=== PATIENT | female | born 1990 | race Native Hawaiian/Other Pacific Islander ===

== ENCOUNTER 2016-06-26 20:38 | Emergency (ER) | payer OTHER ==
[2016-06-26 20:43] VITALS: BP 110/62; PULSE 80; RESP 16; TEMP 98; O2SAT 100
--- NOTE | 2016-06-26 20:49 | ED PDOC ---
Lower Extremity Pain/Injury Time Seen by Provider: 06/26/16 20:46 Chief Complaint (Nursing): Lower Extremity Problem/Injury Chief Complaint (Provider): Right 5th Toe Pain/Injury History Per: Patient, Family () History/Exam Limitations: no limitations Onset/Duration Of Symptoms: Hrs (just prior to arrival) Current Symptoms Are (Timing): Still Present Severity: Moderate Additional Complaint(s): Ryan Vázquez is a 25 year old female, with a history of a previous right 5th toe fracture (January 2010), who presents to the ED on 06/26/16, via EMS and accompanied by her , for the evaluation of moderate right 5th toe pain after having stubbed it against her 's work boot just prior to arrival. Denies numbness/tingling. PMD: non CPH Past Medical History Reviewed: Historical Data, Nursing Documentation, Vital Signs Vital Signs: Last Vital Signs Temp 98.0 F 06/26/16 20:40 Pulse 80 06/26/16 20:40 Resp 16 06/26/16 20:40 BP 110/62 06/26/16 20:40 Pulse Ox 100 06/26/16 20:40 - Medical History PMH: Fractures (right 5th toe (January 2010)) - Surgical History Surgical History: No Surg Hx - Family History Family History: States: Unknown Family Hx - Living Arrangements Living Arrangements: With Family - Allergies Allergies/Adverse Reactions: Allergies Allergy/AdvReac Type Severity Reaction Status Date / Time tannin Allergy VOMITING Uncoded 06/26/16 20:40 Review of Systems Musculoskeletal: Positive for: Foot Pain (right 5th toe) Neurological: Negative for: Numbness (no tingling) Physical Exam - Reviewed Nursing Documentation Reviewed: Yes Vital Signs Reviewed: Yes - Physical Exam Appears: Positive for: Non-toxic, No Acute Distress Extremity: Positive for: Tenderness (right 5th toe), Capillary Refill (<2 seconds), Deformity (noted to base of right 5th toe with lateral displacement). Negative for: Normal ROM (decreased ROM of right 5th toe secondary to pain) Neurologic/Psych: Positive for: Alert, Oriented. Negative for: Motor/Sensory Deficits (sensation intact w/in affected toe) - ECG O2 Sat by Pulse Oximetry: 100 (RA) Pulse Ox Interpretation: Normal Medical Decision Making Medical Decision Makin:46 Initial Impression: right 5th toe pain/injury; will r/o fracture/dislocation Patient has declined offered analgesics. Initial Plan: * XR Right Foot * Upreg * Reevaluation (+) right 5th proximal phalange fx, mild displaced Pt seen and examine by Dr. Miller. Scribe Attestation: Documented by Dimple Zavaelta, acting as a scribe for Desi Chan PA-C. Provider Scribe Attestation: All medical record entries made by the Scribe were at my direction and personally dictated by me. I have reviewed the chart and agree that the record accurately reflects my personal performance of the history, physical exam, medical decision making, and the department course for this patient. I have also personally directed, reviewed, and agree with the discharge instructions and disposition. Disposition - Clinical Impression Clinical Impression: Toe fracture, right - Patient ED Disposition Is Patient to be Admitted: No Counseled Patient/Family Regarding: Diagnosis, Need For Followup - Disposition Referrals: Amarjit Cunningham MD [Staff Provider] - Disposition: Routine/Home Disposition Time: 22:26 Condition: GOOD Instructions: Toe Fracture (ED) Forms: [facility] ED School/Work Excuse
--- NOTE | 2016-06-26 22:30 | CP.PCM.CON ---
History of Present Illness - History of Present Illness History of Present Illness: 25 y/o female with angulated fracture of right 5th digit proximal phalanx. Patient states that earlier today she was walking with boyfriend when she accidentaly hit her right 5th digit on the tip of his steel toed boot. States that she had fractured this before years back in [place] and she was casted but that it healed in an angulated position anyways, but that since she hit the toe there was increased angulation that prior. Patient states she does have pain in the area. Denies any f/c/n/v/sob. Denies any other trauma to the area. PMH: Denies PSH: Denies Social: Denies Allx: Denies Past Patient History - MUSCULOSKELETAL/RHEUMATOLOGICAL Hx Fractures: Yes (right 5th toe (January 2010)) Meds Allergies/Adverse Reactions: Allergies Allergy/AdvReac Type Severity Reaction Status Date / Time tannin Allergy VOMITING Uncoded 06/26/16 20:40 Physical Exam - Constitutional Appears: Well, Non-toxic, No Acute Distress - Neurological Exam Neurological exam: Alert, Oriented x3 - Psychiatric Exam Psychiatric exam: Normal Affect, Normal Mood - Skin Skin Exam: Normal Color, Warm - Additional Findings Additional findings: Vasc: Dp/PT 2/4, Temp gradient wnl, Cap fill time < 3 s x 10 Derm: Mild edema overlying the right 5th digit, no erythema, no open lesions, no clinical signs of infection is noted. no interdigitla maceration Neuro: Grossly intact Ortho: There is noted to be a lateral deviated of the right 5th digit at the area of the PIPJ, there is pain upon palpation of the right fifth digit, unable to assess rom of the affected digit due to pain. Results - Vital Signs Recent Vital Signs: Last Vital Signs Temp 98.0 F 06/26/16 20:40 Pulse 80 06/26/16 20:40 Resp 16 06/26/16 20:40 BP 110/62 06/26/16 20:40 Pulse Ox 100 06/26/16 22:27 Assessment & Plan - Assessment and Plan (Free Text) Assessment: 25 y/o female with right 5th digit Proximal phalanx oblique minimally dislocated fracture. Plan: Patient evaluated and chart reviewed. Discussed iw Dr. Cunningham X-rays reviewed, fracutre line through and trhough of proximal phalanx right 5th digit with angulation of the digit; Prior history was noted, but due to increased angulation reduction will be attempted. Digit numbed with 6cc of 1% lidocaine w/o complication Distraction and reduction of the digit and fracture site attempted and toe held in good positioning with coban splint. Patient to weight bear to heel in surgical shoe. To take OTC NSAID while at home to help w/ swelling. F/u with Dr. Cunningham early next week.
--- NOTE | 2016-06-27 08:43 | RAD ---
HISTORY: pain, deformity COMPARISON: No prior FINDINGS: BONES: Fracture of the 5th proximal phalanx. JOINTS: Normal. No osteoarthritis. SOFT TISSUE: Normal. OTHER FINDINGS: None . IMPRESSION: Fracture of the 5th proximal phalanx.
== END 2016-06-26 22:46 | disposition home or self-care (01) ==
LOC: H.ER 20:38
DX: S92.911A Unspecified fracture of right toe(s), initial encounter for closed fracture (principal); W22.8XXA Striking against or struck by other objects, initial encounter; Y92.008 Other place in unspecified non-institutional (private) residence as the place of occurrence of the external cause

== ENCOUNTER 2018-07-02 19:14 | Emergency (ER) | payer OTHER ==
[2018-07-02 19:48] VITALS: BP 106/74; PULSE 66; RESP 18; TEMP 97.7; O2SAT 98
[2018-07-02] MEDS ORDERED: Tdap Vaccine 0.5 ml Vial (10-64 yrs) IM ONE ×2 (20:44→20:57)
--- NOTE | 2018-07-02 21:01 | ED PDOC ---
HPI: Wound Care - HPI Time Seen by Provider: 07/02/18 19:45 Chief Complaint (Nursing): Abnormal Skin Integrity Chief Complaint (Provider): Left hand laceration History Per: Patient Exam Limitations: no limitations Onset/Duration Of Symptoms: Hrs (one and half hours ago) Current Symptoms Are (Timing): Better Additional Complaint(s): 27 year old female presents to the ED for an evaluation of laceration of her left 2nd digit onset one and a half hour ago. Patient states she was cutting cabbage with a sharp knife. At the moment, unsure of tetanus status. Past Medical History Reviewed: Historical Data, Nursing Documentation, Vital Signs Vital Signs: Last Vital Signs Temp 97.7 F 07/02/18 19:46 Pulse 66 07/02/18 19:46 Resp 18 07/02/18 19:46 BP 106/74 07/02/18 19:46 Pulse Ox 98 07/02/18 19:46 - Medical History PMH: Fractures (right 5th toe (January 2010)) - Family History Family History: States: Unknown Family Hx - Immunization History Hx Tetanus Toxoid Vaccination: No Hx Influenza Vaccination: No Hx Pneumococcal Vaccination: No - Allergies Allergies/Adverse Reactions: Allergies Allergy/AdvReac Type Severity Reaction Status Date / Time Penicillins Allergy RASH Verified 07/02/18 19:46 tannin Allergy VOMITING Uncoded 06/26/16 20:40 Review of Systems ROS Statement: Except As Marked, All Systems Reviewed And Found Negative Musculoskeletal: Positive for: Other (laceration of 2nd left digit). Negative for: Shoulder Pain, Hand Pain Neurological: Negative for: Weakness, Numbness Physical Exam - Reviewed Nursing Documentation Reviewed: Yes Vital Signs Reviewed: Yes - Physical Exam Appears: Positive for: Well, Non-toxic, No Acute Distress Head Exam: Positive for: ATRAUMATIC, NORMAL INSPECTION, NORMOCEPHALIC Skin: Positive for: Normal Color, Warm, DRY Eye Exam: Positive for: EOMI, Normal appearance, PERRL Extremity: Positive for: Other. Negative for: Deformity (.25 cm superficial flap laceration to the lateral distal digit which involves the distal tip to the nail) Neurological/Psych: Positive for: Awake, Alert, Normal Tone, Oriented (x3) - ECG O2 Sat by Pulse Oximetry: 98 (RA) Pulse Ox Interpretation: Normal Medical Decision Making Medical Decision Making: Time: 2043 Plan: Tetanus 0.5ml PROCEDURE: LACERATION REPAIR Performed by the emergency provider Location: Left 2nd digit Length: 0.25cm Description: clean wound edges,no foreign bodies Distal CMS: Normal. No deficits. Neurovascularly intact. Preparation: Patient's left hand soaked in saline and [place]. The area was prepped and draped in the usual sterile fashion. Exploration: The wound was explored and no foreign bodies were found. Procedure: Upon wound reevaluation, it is superficial with no active bleeding. Dermabound used to close wound and steri-strips applied with bulky dry sterile dressing. Post-Procedure: Good closure and hemostasis. The patient tolerated the procedure well and there were no complications. CSM remains intact. Post procedure dressing applied. Patient discharged home with wound care instruction and told to observe for an sign of infection. Scribe Attestation: Documented by Brenden Summers acting as a scribe for Shelley Kingston PA-C. Provider Scribe Attestation: All medical record entries made by the Scribe were at my direction and personally dictated by me. I have reviewed the chart and agree that the record accurately reflects my personal performance of the history, physical exam, medical decision making, and the department course for this patient. I have also personally directed, reviewed, and agree with the discharge instructions and disposition. Disposition - Clinical Impression Clinical Impression: Finger laceration - Disposition Disposition Time: 21:16 Condition: STABLE Additional Instructions: keep dry and covered x 2 days. let glue and steristrips fall off on their own. return to ED if any signs of infection...redness, swelling, pus. Instructions: Laceration Repair With Glue (DC), Wound Care (DC) Forms: [facility] (Irish)
== END 2018-07-02 21:04 | disposition home or self-care (01) ==
LOC: H.ER 19:14
DX: S61.211A Laceration without foreign body of left index finger without damage to nail, initial encounter (principal); W26.0XXA Contact with knife, initial encounter; Y92.89 Other specified places as the place of occurrence of the external cause; Z88.0 Allergy status to penicillin